=== PATIENT | male | born 1995 | race Caucasian/White ===

== ENCOUNTER 2021-09-13 11:11 | Emergency (ER) | payer OTHER ==
[~2021-09-13] VITALS: Ht 172.7 cm; Wt 67.3 kg
[2021-09-13 11:14] VITALS: TEMP 98.9
[2021-09-13 15:16] VITALS: BP 133/62; PULSE 93
== END 2021-09-13 15:19 | disposition home or self-care (01) ==
LOC: COL.ER 11:11
DX: T50.992A Poisoning by other drugs, medicaments and biological substances, intentional self-harm, initial encounter (principal)
CPT/HCPCS: J2405; J7030